=== PATIENT | male | born 1985 | race Caucasian/White ===

== ENCOUNTER → 2019-10-28 | Outpatient (CLI) | payer SELFPAY | PROVIDERS: Family Provider Family Medicine; Visit Provider Internal Medicine Medical Oncology | DX: Z08 Encounter for follow-up examination after completed treatment for malignant neoplasm (principal); Z85.038 Personal history of other malignant neoplasm of large intestine; Z90.49 Acquired absence of other specified parts of digestive tract; E66.01 Morbid (severe) obesity due to excess calories; Z68.42 Body mass index [BMI] 45.0-49.9, adult | CPT/HCPCS: 99213 ==

== ENCOUNTER 2020-04-27 11:31 | Outpatient (CLI) | payer MEDICARE, MEDICAID, SELFPAY ==
--- NOTE | 2020-04-30 17:37 | ONC FU_ITS ---
Dr. Mercado Patient Follow-Up Note Patient: Lauri Wagner Unit #: [id number]: 1985 Dicatated By: Shahzad Mercado M.D.Date of Visit:Apr 27, 2020 Onc Med Follow-up/Prog Note Chief Complaint: Colon cancer. History of Present Illness: This is a 35 year-old man with moderately differentiated adenocarcinoma of the descending colon, stage IIA (pT3, pN0, M0). He had presented with hematochezia, which first started back in May 2016. He had no other associated GI symptoms, but he had felt tired and he had noticed a loss of energy. He was found on colonoscopy to have a polyp in the descending colon. It was unable to be removed with the initial procedure. He was then referred to Dr. Kwan Fox. Repeat colonoscopy on 07/11/2016 showed a malignant appearing mass at 50 cm from the anal verge. He then proceeded with hand-assisted laparoscopic left hemicolectomy. Pathology showed moderately differentiated invasive adenocarcinoma measuring 3.0 cm in greatest dimension. The tumor was noted to invade through the muscularis propria into pericolonic and subserosal adipose tissue. Margins were uninvolved. There was no involvement in 20 lymph nodes. Pathologic staging was pT3, pN0. He unfortunately had a complicated postoperative course, which included anastomotic leak requiring further surgeries on 07/18/2016 and on 07/24/2016. The latter included placement of a colostomy, which later had to be taken down on 09/05/2016. His clinical course during this time was further complicated by development of multiple pulmonary emboli, for which he remained anticoagulated with warfarin. I had seen him initiallly on 10/10/2016. He had mostly recovered from the surgeries. I did not recommend adjuvant chemotherapy. At that point I did recommend that he continue the warfarin, but he later opted to stop it. He has been followed on observation/expectant management. He has morbid obesity. He has been disabled following 3 brain surgeries in 1988, but those were related to benign disease. He is a nonsmoker. He had chewed tobacco in the past, but he quit at age 19. INTERIM HISTORY: He had surveillance colonoscopy in June 2017. Surveillance CT scans on 10/08/2017 showed no evidence of tumor recurrence. There was significant increase in the size of a large right ventral hernia. Also noted was increase in size of a parapelvic lesion of the left kidney with attenuation characteristics which were not typical for a simple cyst. He had further evaluation with renal ultrasound in October 2017. There was no lesion identified in the left kidney. Surveillance CT scans 10/09/2018 showed some new interstitial opacity within the inferior aspect of the right upper lobe, likely representing infectious or inflammatory process. Other bilateral pulmonary opacities appeared unchanged. There was also unchanged appearance of abdominal wall hernias. An indeterminate density left renal lesion also appeared stable. Overall there was no evidence of recurrent or metastatic disease. His surveillance CT scans on on 10/27/2019 showed no evidence of metastatic disease or other interval change. He continued on observation/expectant management. He is seen for a follow-up visit. He has been feeling pretty good generally. His energy has been okay. He is doing light work. ECOG score is 1. He has good appetite. He is watching his diet and trying to lose weight. He does not have fever or night sweats. He does feel hot at times. He has no shortness of breath, cough, or chest pain. He has no GI or complaints. He sometimes has back pain, which is chronic. He also has some headaches and he sometimes has dizziness. He has no focal neurologic symptoms. Medications: Aspirin 1 (81 mg) Tablet Oral daily, buPROPion HCl ER (SR) 1 (200 mg) Tablet SR 12 HR Oral b.i.d., Famotidine 1 (20 mg) Tablet Oral b.i.d., Ibuprofen 1 (800 mg) Tablet Oral t.i.d. PRN, metFORMIN HCl 1 (500 mg) Tablet Oral b.i.d. Allergies: Penicillin Review of Systems: Constitutional - His energy is OK. He is doing light work in and around the house. His appetite is good and weight is stable. No fever. He occasionally feels hot at night. ECOG score is 1, ENMT - No sinus congestion/drainage. No mouth sores. No sore throat or difficulty swallowing, Hematologic/Lymphatic - No abnormal bruising or bleeding, Respiratory - No shortness of breath. No cough. No pleuritic pain or hemoptysis, Cardiovascular - No angina pain. No palpitations, Gastrointestinal - No nausea or vomiting. No heartburn or acid reflux. No diarrhea or constipation. No blood in the stool or black stools. His last colonoscopy was in 2016, Genitourinary (M) - No dysuria or hematuria. No urinary frequency. No urgency or incontinence, Musculoskeletal - He has some chronic lower back pain, Integumentary - No skin complications, Neurologic - He gets headaches. He has occasional dizziness. No numbness or tingling. No other focal neurologic symptoms, Psychiatric - No anxiety. He is taking Wellbutrin for depression. It is working well. No insomnia. Vital Signs: Performed on Apr 27, 2020 11:25 Height - 68.00 in Temperature - 97.1 F (LOW) Pulse - 102 /min (HIGH) Respiration - 19 /min BP - 130/80 mm(hg) O2 Sat - 96 % Pain - 0 Physical Examination: Constitutional - He looks pretty good generally, Eyes - Sclerae nonicteric. Conjunctivae clear, ENMT - No lesions noted in the oral cavity, Hematologic/Lymphatic - No cervical, clavicular, or axillary adenopathy, Respiratory - Lungs are clear, Cardiovascular - Heart rhythm is regular. There is no murmur, gallop, or rub noted, Abdomen - Distended. There is mild tenderness in the left upper quadrant. Liver and spleen are not enlarged. There is no abdominal mass or ascites noted and there is no inguinal adenopathy, Extremities - No edema, Neurologic - No focal neurologic deficits noted. Lab/Imaging: Test performed on Apr 27, 2020 10:17 Glucose 109 mg/dL BUN 12 mg/dL Creatinine 0.82 mg/dL Cr Clearance (Est) 256.39 mL/min Sodium 139 mmol/L Potassium 3.8 mmol/L Chloride 103 mmol/L CO2 27 mmol/L Calcium 8.8 mg/dL Protein, Total 7.0 g/dL Albumin 3.9 g/dL Bilirubin, Total 0.3 mg/dL Alkaline Phosphatase 60 IU/L AST (SGOT) 18 IU/L ALT (SGPT) 17 IU/L WBC 10.5 10^9/L RBC 4.48 10^12/L HGB 13.4 g/dL HCT 40.4 % MCV 90.2 fl MCH 29.9 pg MCHC 33.2 g/dL RDW 12.7 % Platelet Count 209 10^9/L MPV 11.1 fL Neutrophils (Gran) 6.80 10^9/L Lymphocytes 2.62 10^9/L Monocytes 0.77 10^9/L Eosinophils 0.23 10^9/L Basophils 0.03 10^9/L Manual Lymphocytes 25 % Manual Monocytes 7 % Manual Eosinophils 2 % Manual Basophils 0 % CEA 2.3 ng/mL Impression: 1. Patient with moderately differentiated adenocarcinoma of the descending colon, stage IIA (pT3, pN0, M0). 2. He underwent hand-assisted laparoscopic left hemicolectomy on 07/11/2016. 3. He had a complicated postoperative course, requiring 3 additional surgeries, but he did recover. Adjuvant chemotherapy was not recommended. 4. His postoperative course was also complicated by pulmonary emboli, for which he was given anticoagulation with warfarin. It was stopped as of his follow-up visit in March 2017. 5. He has morbid obesity. 6. He has been disabled following trauma related brain surgeries in 1988. He had gradual recovery following his surgery. There was a suspected left renal lesion noted on his surveillance CT scans in September 2017, but his subsequent renal ultrasound was unrevealing, and it also appeared stable on his subsequent surveillance CT scans. During followup his clinical status has remained stable with no evidence of recurrence of the colon cancer. Plan: He remains on observation/expectant management. He will be scheduled for a followup visit in 6 months. He will have surveillance CT scans prior to that visit. In the meantime, I also will check up on his surveillance colonoscopy schedule. Signed By: Shahzad Mercado M.D. <<Signature on File>>
== END 2020-04-27 11:32 | disposition home or self-care (01) ==
LOC: ONCMED 11:32
PROVIDERS: PCP Family Medicine; Visit Provider Internal Medicine Medical Oncology
DX: Z08 Encounter for follow-up examination after completed treatment for malignant neoplasm (principal); Z85.038 Personal history of other malignant neoplasm of large intestine; Z90.49 Acquired absence of other specified parts of digestive tract; I26.99 Other pulmonary embolism without acute cor pulmonale; E66.9 Obesity, unspecified; E66.01 Morbid (severe) obesity due to excess calories
CPT/HCPCS: G0463

== ENCOUNTER 2020-06-22 06:45 | Day surgery (SDC) | payer MEDICARE, MEDICAID, SELFPAY ==
[2020-06-22 07:07] VITALS: BP 129/89; PULSE 95; RESP 18; TEMP 36.4; O2SAT 93
--- NOTE | 2020-06-22 07:23 | P.ANESASSM_ITS ---
Pre-Anesthetic Assessment Pre-Anesthetic Assessment: Height/Weight: Height 1.73 m Weight 198.22 kg Temp Pulse Resp BP Pulse Ox 97.5 F L 95 18 129/89 93 06/22/20 07:07 06/22/20 07:07 06/22/20 07:07 06/22/20 07:07 06/22/20 07:07 Preop Diagnosis: History of colon cancer Proposed Procedure: Operation Date: 06/22/20 07:45 Proposed Procedures p Colonoscopy with poss biopsy poss polypectomy(Not Applicable) - Jorge Escobedo MD Was Beta Coty taken within 24 hours: N/A Last intake: Intake Last Liquid Date 06/21/20 Last Liquid Time 22:30 Last Solid Date 06/20/20 Last Solid Time 18:00 Exam: Pre-Anes Outpt Exam: alert, oriented x 3, clear to auscultation glenna aterally and regular rate & rhythm Airway: Submandibular: WNL Cervical ROM: WNL MP: 1 GI: GI: None reported Metabolic: Metabolic: DM Neuropsych: Neuropsych: Depression Anesthetic Plan: ASA status: 3 Anesthesia: MAC Risk of > 500 ml blood loss (7ml/kg in children): No PFSH Anesthesia PFSH: Medical History Colon cancer Depression Surgical History H/O brain surgery x 3 1988 H/O circumcision H/O colonoscopy 2018 H/O partial resection of colon History of tonsillectomy Family History Grandfather Bleeding disorder CAD (coronary artery disease) Grandmother Cancer lung, uncle pancreatic, aunt breast Sister No problems noted. Mother Cancer colon Other Diabetes Denies family history of Anesthesia complication Social History Smoking and tobacco status: never smoked Alcohol intake: never Household members: family Marital status: Single Current occupational status: disabled History of recent travel: No Data Anesthesia Cardiac Studies: No Data to Display
[2020-06-22] MEDS: sodium chloride 0.9% 1,000 ML 30 ML IV (07:28)
[2020-06-22 07:33] LABS: Glucose Point of Care 99 mg/dL (70-110)
--- NOTE | 2020-06-22 07:47 | W.PM.OPSUD ---
Surgery/Procedure H&P Update DATE OF PROCEDURE: June 22, 2020 DATE H&P PERFORMED: 06/14/20 H&P UPDATE INFORMATION: I have reviewed H&P completed within last 30 days, I have examined patient prior to procedure and No changes to prior documentation PREOP DIAGNOSIS: History of colon cancer PLANNED PROCEDURE: Operation Date: 06/22/20 07:45 Proposed Procedures p Colonoscopy with poss biopsy poss polypectomy(Not Applicable) - Jorge Escobedo MD
[2020-06-22 07:58] VITALS: BP 133/87; PULSE 99; RESP 16; TEMP 36.3; O2SAT 93
[2020-06-22 08:06] VITALS: BP 124/80; PULSE 86; RESP 18; O2SAT 92
--- NOTE | 2020-06-22 08:06 | ANE.PACU2 ---
Inpatient post-anesthesia follow up: Airway intact: Yes Vital signs: Temperature 97.3 F Pulse Rate 99 Respiratory Rate 16 Blood Pressure 133/87 Pulse Oximetry 93 Oxygen Delivery Me thod Room Air Oxygen Flow Rate Fraction of Inspir ed Oxygen Hydration adequate: Yes Nausea and vomiting: Yes (zofran given in recovery ) Pain level: 1 Mental status: Baseline
== END 2020-06-22 08:19 | disposition home or self-care (01) ==
PROVIDERS: PCP Family Medicine; Visit Provider Surgery
PROC: 0DJD8ZZ Inspection of Lower Intestinal Tract, Via Natural or Artificial Opening Endoscopic (ICD-10-PCS; CPT 45378; principal; 2020-06-22 07:45)
DX: Z85.038 Personal history of other malignant neoplasm of large intestine (principal); K64.8 Other hemorrhoids; E11.9 Type 2 diabetes mellitus without complications; F32.9 Major depressive disorder, single episode, unspecified; Z90.49 Acquired absence of other specified parts of digestive tract; Z79.82 Long term (current) use of aspirin; Z79.84 Long term (current) use of oral hypoglycemic drugs
CPT/HCPCS: 12345; 36416; 45378; 82962; J2405; J2704; J7030

== ENCOUNTER 2020-10-26 12:19 | Outpatient (CLI) | payer MEDICARE, MEDICAID, SELFPAY ==
--- NOTE | 2020-10-29 15:55 | ONC FU_ITS ---
Dr. Mercado Patient Follow-Up Note Patient: Lauri Wagner Unit #: [id number]: [id number] Dicatated By: Shahzad Mercado M.D.Date of Visit:Oct 26, 2020 Onc Med Follow-up/Prog Note Chief Complaint: Colon cancer. History of Present Illness: This is a 35 year-old man with moderately differentiated adenocarcinoma of the descending colon, stage IIA (pT3, pN0, M0). He had presented with hematochezia, which first started back in May 2016. He had no other associated GI symptoms, but he had felt tired and he had noticed a loss of energy. He was found on colonoscopy to have a polyp in the descending colon. It was unable to be removed with the initial procedure. He was then referred to Dr. Kwan Fox. Repeat colonoscopy on 07/11/2016 showed a malignant appearing mass at 50 cm from the anal verge. He then proceeded with hand-assisted laparoscopic left hemicolectomy. Pathology showed moderately differentiated invasive adenocarcinoma measuring 3.0 cm in greatest dimension. The tumor was noted to invade through the muscularis propria into pericolonic and subserosal adipose tissue. Margins were uninvolved. There was no involvement in 20 lymph nodes. Pathologic staging was pT3, pN0. He unfortunately had a complicated postoperative course, which included anastomotic leak requiring further surgeries on 07/18/2016 and on 07/24/2016. The latter included placement of a colostomy, which later had to be taken down on 09/05/2016. His clinical course during this time was further complicated by development of multiple pulmonary emboli, for which he remained anticoagulated with warfarin. I had seen him initiallly on 10/10/2016. He had mostly recovered from the surgeries. I did not recommend adjuvant chemotherapy. At that point I did recommend that he continue the warfarin, but he later opted to stop it. He has been followed on observation/expectant management. He has morbid obesity. He has been disabled following 3 brain surgeries in 1988, but those were related to benign disease. He is a nonsmoker. He had chewed tobacco in the past, but he quit at age 19. INTERIM HISTORY: He had surveillance colonoscopy in June 2017. Surveillance CT scans on 10/08/2017 showed no evidence of tumor recurrence. There was significant increase in the size of a large right ventral hernia. Also noted was increase in size of a parapelvic lesion of the left kidney with attenuation characteristics which were not typical for a simple cyst. He had further evaluation with renal ultrasound in October 2017. There was no lesion identified in the left kidney. Surveillance CT scans 10/09/2018 showed some new interstitial opacity within the inferior aspect of the right upper lobe, likely representing infectious or inflammatory process. Other bilateral pulmonary opacities appeared unchanged. There was also unchanged appearance of abdominal wall hernias. An indeterminate density left renal lesion also appeared stable. Overall there was no evidence of recurrent or metastatic disease. His surveillance CT scans on on 10/27/2019 showed no evidence of metastatic disease or other interval change and he continued on observation/expectant management. His surveillance colonoscopy on 06/22/2020 showed patent colonic anastomosis with no evidence of recurrence or stricture. He was recommended to have follow-up colonoscopy in [address] scans of the chest, abdomen, and pelvis on 10/21/2020 showed no evidence of metastatic disease. Large bilateral ventral hernias were present containing nonobstructed bowel loops. He is seen for a follow-up visit. He says his energy has been down some. His activity has been very limited. ECOG score is 2. Appetite has been okay. He has not recently had any fever. He does have sweating about every night. His main complaint is that he has been having pain in his right lower quadrant area. He does feel a knot down there. The pain is significant enough to limit his activity and to affect his sleep. He has not had any associated GI symptoms and his bowel and bladder function have been okay. Medications: Aspirin 1 (81 mg) Tablet Oral daily, buPROPion HCl ER (SR) 1 (200 mg) Tablet SR 12 HR Oral b.i.d., Famotidine 1 (20 mg) Tablet Oral b.i.d., Ibuprofen 1 (800 mg) Tablet Oral t.i.d. PRN, metFORMIN HCl 1 (500 mg) Tablet Oral b.i.d. Allergies: Penicillin Review of Systems: Constitutional - His energy has been down and his activity has been very limited. Appetite is okay. He has not had any fever recently. He does have sweating about every night. ECOG score is 2, ENMT - He has a little sinus congestion/drainage. No mouth sores. No sore throat or difficulty swallowing, Hematologic/Lymphatic - No abnormal bruising or bleeding, Respiratory - No shortness of breath. He does have some cough. No pleuritic pain or hemoptysis, Cardiovascular - No angina pain. No palpitations, Gastrointestinal - He has been having pain in the right lower quadrant area. It comes and goes. It is significant enough to limit his activity and to affect his sleep. No nausea or vomiting. No heartburn or acid reflux. No diarrhea or constipation. No blood in the stool or black stools, Genitourinary (M) - No dysuria or hematuria. No urinary frequency. No urgency or incontinence, Musculoskeletal - No joint or bone pain, Integumentary - No skin rash, Neurologic - No headache or dizziness. No numbness or tingling. No other focal neurologic symptoms, Psychiatric - No anxiety. He does have some depression, but it is adequately managed with medication. He is having difficulty sleeping. Vital Signs: Performed on Oct 26, 2020 11:25 Height - 68.00 in Weight - 435 lbs (HIGH) BSA - 2.84 sq.m BMI - 66.14 (HIGH) Temperature - 98.9 F (HIGH) Pulse - 86 /min Respiration - 18 /min BP - 118/78 mm(hg) O2 Sat - 94 % (LOW) Pain - 5 Physical Examination: Constitutional - He looks pretty good generally, Eyes - Sclerae nonicteric. Conjunctivae clear, ENMT - No lesions noted in the oral cavity, Hematologic/Lymphatic - No cervical, clavicular, or axillary adenopathy, Respiratory - Lungs are clear, Cardiovascular - Heart rhythm is regular. There is no murmur, gallop, or rub noted, Abdomen - Distended. There is a noticeable abdominal wall herniation in the right lower quadrant area, and he is tender in that area. Liver and spleen are not enlarged. There is no abdominal mass or ascites noted and there is no inguinal adenopathy, Extremities - No edema, Neurologic - No focal neurologic deficits noted. Lab/Imaging: Test performed on Oct 21, 2020 09:10 Glucose 92 mg/dL BUN 15 mg/dL Creatinine 0.89 mg/dL Cr Clearance (Est) 236.23 mL/min Sodium 137 mmol/L Potassium 4.3 mmol/L Chloride 102 mmol/L CO2 28 mmol/L Calcium 9.5 mg/dL Protein, Total 7.7 g/dL Albumin 4.2 g/dL Bilirubin, Total 0.4 mg/dL Alkaline Phosphatase 61 IU/L AST (SGOT) 17 IU/L ALT (SGPT) 18 IU/L WBC 10.7 10^9/L RBC 4.89 10^12/L HGB 14.4 g/dL HCT 43.3 % MCV 88.5 fl MCH 29.4 pg MCHC 33.3 g/dL RDW 12.6 % Platelet Count 237 10^9/L MPV 11.2 fL Neutrophils (Gran) 6.95 10^9/L Lymphocytes 2.63 10^9/L Monocytes 0.79 10^9/L Eosinophils 0.18 10^9/L Basophils 0.03 10^9/L Manual Lymphocytes 25 % Manual Monocytes 7 % Manual Eosinophils 2 % Manual Basophils 0 % CEA 2.2 ng/mL Impression: 1. Patient with moderately differentiated adenocarcinoma of the descending colon, stage IIA (pT3, pN0, M0). 2. He underwent hand-assisted laparoscopic left hemicolectomy on 07/11/2016. 3. He had a complicated postoperative course, requiring 3 additional surgeries, but he did recover. Adjuvant chemotherapy was not recommended. 4. His postoperative course was also complicated by pulmonary emboli, for which he was given anticoagulation with warfarin. It was stopped as of his follow-up visit in March 2017. 5. He has morbid obesity. 6. He has been disabled following trauma related brain surgeries in 1988. He had gradual recovery following his surgery. There was a suspected left renal lesion noted on his surveillance CT scans in September 2017, but his subsequent renal ultrasound was unrevealing, and it also appeared stable on his subsequent surveillance CT scans. He had negative surveillance colonoscopy in June 2020. His surveillance CT scans on 10/21/2020 showed no evidence of recurrent or metastatic disease. There was evidence, though, of large ventral hernias bilaterally, both containing nonobstructed bowel. He is having significant pain in the area of the ventral hernia on the right side. Plan: He remains on observation/expectant management for the colon cancer. I will see him again in 6 months. In the meantime, I will discussed the CT findings with Dr. Escobedo, as it does appear likely that his abdominal pain is associated with the ventral hernia. Signed By: Shahzad Mercado M.D. <<Signature on File>>
== END 2020-10-26 12:20 | disposition home or self-care (01) ==
LOC: ONCMED 12:20
PROVIDERS: PCP Family Medicine; Visit Provider Internal Medicine Medical Oncology
DX: Z08 Encounter for follow-up examination after completed treatment for malignant neoplasm (principal); Z85.038 Personal history of other malignant neoplasm of large intestine; E66.01 Morbid (severe) obesity due to excess calories; R10.84 Generalized abdominal pain; K43.9 Ventral hernia without obstruction or gangrene; Z79.899 Other long term (current) drug therapy
CPT/HCPCS: 99214

== ENCOUNTER 2021-04-26 12:30 | Outpatient (CLI) | payer MEDICARE, MEDICAID, SELFPAY ==
--- NOTE | 2021-04-29 07:05 | ONC FU_ITS ---
Dr. Mercado Patient Follow-Up Note Patient: Lauri Wagner Unit #: [id number]: 1985 Dicatated By: Shahzad Mercado M.D.Date of Visit:Apr 26, 2021 Onc Med Follow-up/Prog Note Chief Complaint: Colon cancer. History of Present Illness: This is a 36 year-old man with moderately differentiated adenocarcinoma of the descending colon, stage IIA (pT3, pN0, M0). He had presented with hematochezia, which first started back in May 2016. He had no other associated GI symptoms, but he had felt tired and he had noticed a loss of energy. He was found on colonoscopy to have a polyp in the descending colon. It was unable to be removed with the initial procedure. He was then referred to Dr. Kwan Fox. Repeat colonoscopy on 07/11/2016 showed a malignant appearing mass at 50 cm from the anal verge. He then proceeded with hand-assisted laparoscopic left hemicolectomy. Pathology showed moderately differentiated invasive adenocarcinoma measuring 3.0 cm in greatest dimension. The tumor was noted to invade through the muscularis propria into pericolonic and subserosal adipose tissue. Margins were uninvolved. There was no involvement in 20 lymph nodes. Pathologic staging was pT3, pN0. He unfortunately had a complicated postoperative course, which included anastomotic leak requiring further surgeries on 07/18/2016 and on 07/24/2016. The latter included placement of a colostomy, which later had to be taken down on 09/05/2016. His clinical course during this time was further complicated by development of multiple pulmonary emboli, for which he remained anticoagulated with warfarin. I had seen him initiallly on 10/10/2016. He had mostly recovered from the surgeries. I did not recommend adjuvant chemotherapy. At that point I did recommend that he continue the warfarin, but he later opted to stop it. He has been followed on observation/expectant management. He has morbid obesity. He has been disabled following 3 brain surgeries in 1988, but those were related to benign disease. He is a nonsmoker. He had chewed tobacco in the past, but he quit at age 19. INTERIM HISTORY: He had surveillance colonoscopy in June 2017. Surveillance CT scans on 10/08/2017 showed no evidence of tumor recurrence. There was significant increase in the size of a large right ventral hernia. Also noted was increase in size of a parapelvic lesion of the left kidney with attenuation characteristics which were not typical for a simple cyst. He had further evaluation with renal ultrasound in October 2017. There was no lesion identified in the left kidney. Surveillance CT scans 10/09/2018 showed some new interstitial opacity within the inferior aspect of the right upper lobe, likely representing infectious or inflammatory process. Other bilateral pulmonary opacities appeared unchanged. There was also unchanged appearance of abdominal wall hernias. An indeterminate density left renal lesion also appeared stable. Overall there was no evidence of recurrent or metastatic disease. His surveillance CT scans on on 10/27/2019 showed no evidence of metastatic disease or other interval change and he continued on observation/expectant management. His surveillance colonoscopy on 06/22/2020 showed patent colonic anastomosis with no evidence of recurrence or stricture. He was recommended to have follow-up colonoscopy in [address] scans of the chest, abdomen, and pelvis on 10/21/2020 showed no evidence of metastatic disease. Large bilateral ventral hernias were present containing nonobstructed bowel loops. He is seen for a scheduled visit. At his follow-up visit in October he was having pain associated with the hernia in the right lower quadrant area. I had contacted Dr. Escobedo about that, but he apparently did not follow-up with him. Since then it has not been bothering him as much, so that he has pain with it only occasionally. He has been feeling okay generally. He is able to do some light work, but no lifting. His ECOG score is 1. He had recently started meformin for metabolic syndrome/obesity, and he has been able to lose 22 pounds. He has not had fever. He has had some sweating at night. He recently had a cataract excision on the right eye, and that procedure went well. He has not had sore throat or difficulty swallowing. He has no shortness of breath, cough, or chest pain. He has no other GI or complaints. He has no significant joint or bone pain. He does not complain of headache or dizziness. He has no focal neurologic symptoms. Medications: Aspirin 1 (81 mg) Tablet Oral daily, buPROPion HCl ER (SR) 1 (200 mg) Tablet SR 12 HR Oral b.i.d., Famotidine 1 (20 mg) Tablet Oral b.i.d., Ibuprofen 1 (800 mg) Tablet Oral t.i.d. PRN, metFORMIN HCl 1 (500 mg) Tablet Oral b.i.d. Allergies: Penicillin Vital Signs: Performed on Apr 26, 2021 12:16 Height - 68.00 in Weight - 425 lbs (LOW) BSA - 2.82 sq.m BMI - 64.62 (HIGH) Temperature - 97.5 F (LOW) Pulse - 87 /min Respiration - 18 /min BP - 128/68 mm(hg) O2 Sat - 97 % Pain - 0 Physical Examination: Constitutional - He looks pretty good generally, Eyes - Sclerae nonicteric. Conjunctivae clear, ENMT - No lesions noted in the oral cavity, Hematologic/Lymphatic - No cervical, clavicular, or axillary adenopathy, Respiratory - Lungs are clear, Cardiovascular - Heart rhythm is regular. There is no murmur, gallop, or rub noted, Abdomen - Distended. There is an abdominal wall herniation in the right lower quadrant area below the incisional scar. Liver and spleen are not enlarged. There is no abdominal mass or ascites noted and there is no inguinal adenopathy, Extremities - Mild edema, Neurologic - No focal neurologic deficits noted. Lab/Imaging: Test performed on Apr 23, 2021 06:52 Glucose 110 mg/dL BUN 16 mg/dL Creatinine 0.85 mg/dL Cr Clearance (Est) 328.86 mL/min Sodium 139 mmol/L Potassium 3.8 mmol/L Chloride 103 mmol/L CO2 25 mmol/L Calcium 8.5 mg/dL Protein, Total 6.3 g/dL Albumin 3.8 g/dL Globulin 2.5 g/dL Bilirubin, Total 0.6 mg/dL Alkaline Phosphatase 51 IU/L AST (SGOT) 15 IU/L ALT (SGPT) 16 IU/L WBC 8.4 10^9/L RBC 4.54 10^12/L HGB 13.8 g/dL HCT 42.9 % MCV 94.5 fl MCH 30.4 pg MCHC 32.2 g/dL RDW 13.0 % Platelet Count 200 10^9/L MPV 12.3 fL Neutrophils (Gran) 5477 10^9/L Lymphocytes 2150 10^9/L Monocytes 588 10^9/L Eosinophils 151 10^9/L Basophils 34 10^9/L Manual Lymphocytes 25.6 % Manual Monocytes 7.0 % Manual Eosinophils 1.8 % Manual Basophils 0.4 % CEA 1.5 ng/mL Problem List: 1. Patient with moderately differentiated adenocarcinoma of the descending colon, stage IIA (pT3, pN0, M0). He underwent hand-assisted laparoscopic left hemicolectomy on 07/11/2016. 2. His postoperative course was also complicated by pulmonary emboli, for which he was given anticoagulation with warfarin. It was stopped as of his follow-up visit in March 2017. 3. Morbid obesity. 4. He has been disabled following trauma related brain surgeries in 1988. Problems Addressed with this Encounter and Plan: 1. Patient with moderately differentiated adenocarcinoma of the descending colon, stage IIA (pT3, pN0, M0). He underwent hand-assisted laparoscopic left hemicolectomy on 07/11/2016. He had a complicated postoperative course, requiring 3 additional surgeries, but he did recover. Adjuvant chemotherapy was not recommended. He had negative surveillance colonoscopy in June 2020. His surveillance CT scans on 10/21/2020 showed no evidence of recurrent or metastatic disease. There was evidence, though, of large ventral hernias bilaterally, both containing nonobstructed bowel. He was having significant pain in the area of the ventral hernia on the right side, but that has since then improved. He has otherwise been doing well clinically. Thus far there has been no evidence of recurrence of the colon cancer. He is now close to 5 years out from his surgery. He remains on observation/expectant management. He will now continue his regular follow-up with Dr. Pool. I will plan to see him again only as needed. However, I will go ahead and schedule his surveillance CT scans for this year, which will be due in October. Beyond that, he should have further CT scanning only as needed for evaluation of a specific symptoms. He would be due for surveillance colonoscopy again in 2024. Signed By: Shahzad Mercado M.D. <<Signature on File>>
== END 2021-04-26 12:31 | disposition home or self-care (01) ==
PROVIDERS: PCP Family Medicine; Visit Provider Internal Medicine Medical Oncology
DX: Z08 Encounter for follow-up examination after completed treatment for malignant neoplasm (principal); Z85.038 Personal history of other malignant neoplasm of large intestine; I26.99 Other pulmonary embolism without acute cor pulmonale; E66.01 Morbid (severe) obesity due to excess calories; Z79.01 Long term (current) use of anticoagulants; Z79.899 Other long term (current) drug therapy; Z92.21 Personal history of antineoplastic chemotherapy
CPT/HCPCS: G0463

== ENCOUNTER 2021-11-28 09:41 | Outpatient (CLI) | payer MEDICARE, MEDICAID, SELFPAY ==
--- NOTE | 2021-11-28 09:46 | US_ITS ---
WS: [id number] RENAL ULTRASOUND HISTORY: COLON CANCER COMPARISON: None available. TECHNIQUE: 2-D and color Doppler imaging of the kidney submitted. Right kidney: 13.2 cm x 6.4 cm x 5.8 cm. Normal echogenicity with no hydronephrosis or mass. Left kidney: 12.4 cm x 6.9 cm x 7.6 cm. Normal echogenicity with no hydronephrosis or mass. Aorta: Normal. Urinary Bladder: Normal distention. US/US renal BI* [id number] IMPRESSION: Normal renal ultrasound.
== END 2021-11-28 09:42 | disposition home or self-care (01) ==
LOC: RAD 09:45
PROVIDERS: PCP Family Medicine; Visit Provider Internal Medicine Medical Oncology
DX: C18.6 Malignant neoplasm of descending colon (principal)
CPT/HCPCS: 76770

== ENCOUNTER 2024-05-14 15:02 | Emergency (ER) | payer MEDICARE, MEDICAID, SELFPAY ==
[2024-05-14 15:04] VITALS: BP 128/70; PULSE 98; RESP 22; TEMP 36.9; O2SAT 95
--- NOTE | 2024-05-14 15:07 | XRR_ITS ---
PROCEDURE INFORMATION: Exam: XR Right Ankle Exam date and time: 05/14/2024 3:15 PM Age: 39 years old Clinical indication: Injury or trauma; Fall; Blunt trauma; Ankle; Right TECHNIQUE: Imaging protocol: Radiologic exam of the right ankle. Views: 3 or more views. COMPARISON: No relevant prior studies available. FINDINGS: Bones/joints: Normal. Soft tissues: Normal. XR/XR ankle RT min 3V* [id number] IMPRESSION: No acute findings.
--- NOTE | 2024-05-14 15:10 | XRR_ITS ---
PROCEDURE INFORMATION: Exam: XR Right Knee Exam date and time: 05/14/2024 3:17 PM Age: 39 years old Clinical indication: Injury or trauma; Fall; Blunt trauma; Knee; Right TECHNIQUE: Imaging protocol: Radiologic exam of the right knee. Views: 3 views. COMPARISON: CR XR ankle RT min 3V* [id number] 05/14/2024 3:15 PM FINDINGS: Bones/joints: Normal. Soft tissues: Normal. XR/XR knee RT 3V* [id number] IMPRESSION: No acute findings.
--- NOTE | 2024-05-14 15:10 | XRR_ITS ---
PROCEDURE INFORMATION: Exam: XR Right Foot Exam date and time: 05/14/2024 3:23 PM Age: 39 years old Clinical indication: Injury or trauma; Fall; Blunt trauma; Foot; Right TECHNIQUE: Imaging protocol: Radiologic exam of the right foot. Views: 3 or more views. COMPARISON: CR XR ankle RT min 3V* [id number] 05/14/2024 3:15 PM FINDINGS: Bones/joints: Normal. Soft tissues: Normal. XR/XR foot RT min 3V* [id number] IMPRESSION: No acute findings.
--- NOTE | 2024-05-14 15:30 | W.ED.FALL ---
HPI - Fall General: Chief Complaint: Fall Stated Complaint: Fall, RT ankle pain Time Seen by Provider: 05/14/24 15:05 History of Present Illness: 39-year-old male patient comes in today for injury to the right lower extremity. Patient states that he was walking across the floor when the floor gave out on him causing his foot to go through to the subfloor. Patient reports pain to the foot to the knee. Patient appears nontoxic. No acute distress is noted. Patient has some mental health issues and morbid obesity. Review of Systems General: Reports: 10 or more systems reviewed and unremarkable except in HPI and below Musc: Reports: extremity pain PFS ED PFSH: Medical History (Updated 05/14/24 @ 15:49 by ZAID Haro) Depression Colon cancer Surgical History (Updated 06/22/20 @ 08:00 by Jorge Escobedo MD) Status post colonoscopy (06/22/20) Repeat 5 years H/O circumcision History of tonsillectomy H/O partial resection of colon H/O brain surgery x 3 1988 H/O colonoscopy 2019 Family History Grandfather Bleeding disorder CAD (coronary artery disease) Grandmother Cancer lung, uncle pancreatic, aunt breast Sister No problems noted. Mother Cancer colon Other Diabetes Denies family history of Anesthesia complication Social History Smoking and tobacco/nicotine status: never used tobacco/nicotine Alcohol intake: never Substance/Drug Use: never Household members: family Marital status: Single Current occupational status: disabled Physical Exam Const: COMMON NORMALS: alert HENMT: COMMON NORMALS: normocephalic HEAD & SCALP: normocephalic Neck/C-Spine: COMMON NORMALS: full ROM Chest: COMMONS NORMALS: normal inspection of the chest Resp: COMMON NORMALS: normal respiratory effort Cardio: COMMON NORMALS: regular rate RATE: regular rate GI: COMMON NORMALS: non-tender Back/Pelvis: COMMON NORMALS: thoracic and lumbar spine normal to inspection Extremity: RIGHT LOWER EXTREMITY: Yes lower leg (Palpable tenderness), Yes foot & digits (Joint line tenderness, no obvious swelling) and Yes foot & digits (dorsal tenderness) Neuro: SENSORIUM/ORIENTATION: Yes alert Skin: COMMON NORMALS: turgor normal GENERAL SKIN EXAM: turgor normal Course Vital Signs: Vital signs: Vital Signs Temperature 98.4 F 05/14/24 15:04 Pulse Rate 98 05/14/24 15:04 Respiratory Rate 22 H 05/14/24 15:04 Blood Pressure 128/70 05/14/24 15:04 Pulse Oximetry 95 05/14/24 15:04 Oxygen Delivery Me thod Room Air 05/14/24 15:04 MDM - Fall Medical Decision Making 39-year-old male patient comes in today for complaints of injury to the right lower extremity. On exam patient has minimal bruising to the right lower extremity. Distal pulses are intact. Cap refill is intact. Patient is quite bearing. Vital signs are normal. Differential diagnosis includes fracture, sprain, contusion. X-rays of extremity noted no fractures. Reviewed exam with patient with recommendations for treatment and follow-up. Patient reported understanding agreed to plan. Lab Data Radiology Impressions Ankle X-Ray 05/14/24 15:07 IMPRESSION: No acute findings. Foot X-Ray 05/14/24 15:10 IMPRESSION: No acute findings. Knee X-Ray 05/14/24 15:10 IMPRESSION: No acute findings. All radiology interpretation(s) finalized by discharge Discharge Plan Discharge Patient Disposition: Home Clinical Impression: Contusion of right lower leg Qualifiers: Encounter type: initial encounter Qualified Code(s): S80.11XA - Contusion of right lower leg, initial encounter Condition: Stable Prescriptions: No Action aspirin 81 mg tablet,delayed release (DR/EC) 81 mg PO DAILY bupropion HCl 200 mg tablet sustained-release 12 hr 200 mg PO BID ibuprofen 800 mg tablet 800 mg PO TID PRN (Reason: Pain) metformin 500 mg tablet 500 mg PO BID hydroxyzine HCl 25 mg Tablet 25 mg PO TID Discharge Orders: Discharge ED (Routine); Ordered 05/14/24 Ordered By: Arron Brooks Referrals: Gregg Pool [Primary Care Provider] - Discharge Diet: Usual diet Discharge Activity: Increase activity as tolerated Patient Instructions: Contusion in Adults (ED) Activity Restrictions/Additional Instructions: Activity as tolerated. Use ice or heat to help with pain. Use Tylenol and ibuprofen for further pain relief. Follow-up with primary care for further evaluation and treatment. Return to ED for new concerns. Coding Level of Care Code ED [employer] for Torey Garcia
== END 2024-05-14 16:08 | disposition home or self-care (01) ==
PROVIDERS: Emergency Provider Nurse Practitioner Family; PCP Family Medicine
DX: S80.11XA Contusion of right lower leg, initial encounter (principal); Z79.82 Long term (current) use of aspirin; Z79.84 Long term (current) use of oral hypoglycemic drugs; Z85.038 Personal history of other malignant neoplasm of large intestine; W13.3XXA Fall through floor, initial encounter
CPT/HCPCS: 73562; 73610; 73630; 99284

== ENCOUNTER 2024-06-16 06:00 | Outpatient (CLI) | payer MEDICARE, MEDICAID, SELFPAY | END 2024-06-16 06:01 | LOC: SPT 06-17 09:46 | PROVIDERS: PCP Family Medicine; Visit Provider Podiatrist Foot & Ankle Surgery | DX: Z46.89 Encounter for fitting and adjustment of other specified devices (principal); S93.401D Sprain of unspecified ligament of right ankle, subsequent encounter; X58.XXXD Exposure to other specified factors, subsequent encounter | CPT/HCPCS: 97760; 99203; L1902 ==

== ENCOUNTER → 2024-06-16 13:28 | Outpatient (BNVA) | payer MEDICARE, MEDICAID, SELFPAY | PROVIDERS: PCP Family Medicine; Visit Provider Podiatrist Foot & Ankle Surgery | DX: M79.671 Pain in right foot; S93.401A Sprain of unspecified ligament of right ankle, initial encounter; S80.11XA Contusion of right lower leg, initial encounter; W13.3XXA Fall through floor, initial encounter | CPT/HCPCS: 73610 ==

== ENCOUNTER → 2024-07-21 13:45 | Outpatient (BNVA) | payer MEDICARE, MEDICAID, SELFPAY | PROVIDERS: PCP Family Medicine; Visit Provider Podiatrist Foot & Ankle Surgery | DX: S93.401A Sprain of unspecified ligament of right ankle, initial encounter (principal); X58.XXXA Exposure to other specified factors, initial encounter | CPT/HCPCS: 99213 ==